=== PATIENT | male | born 1960 | race Caucasian/White ===

== ENCOUNTER 2019-04-10 12:45 | Emergency (ER) | payer OTHER, SELFPAY ==
[2019-04-10] VITALS (42 sets, daily range): BP systolic 107–133; BP diastolic 69–86; PULSE 54–74; RESP 9–31; TEMP 36.6–36.8; O2SAT 92–98
--- NOTE | 2019-04-10 12:47 | W.ED.GENAD ---
Discharge Plan Disposition Patient Disposition: HOME Condition: Improving Discharge Details Chief Complaint: Chest Pain Clinical Impression: Atypical chest pain, Anxiety, Stress at work Primary Care Provider: Stephani,Local ED Provider: Annelise Vizcarra Home Meds and New Rx's Prescriptions: Continued buspirone 5 mg Tablet 5 mg PO BID RF: 0 vitamin B complex Tablet 1 tab PO DAILY RF: 0 cholecalciferol (vitamin D3) [Vitamin D3] 1,000 unit Capsule 1,000 unit PO DAILY RF: 0 bupropion HCl [Wellbutrin XL] 300 mg Tablet Extended Release 24 Hr 300 mg PO DAILY RF: 0 omega 0-[id number]-[id number]-fish oil [Fish Oil] 1,000 mg (120 mg-180 mg) Capsule 1 cap PO DAILY RF: 0 Discharge Instructions Instructions: Chest Pain (ED), Anxiety (ED) Additional Instructions: Take the Ativan as needed and directed for any further episodes of feelings similar to anxiety. Call your primary care doctor tomorrow to schedule follow-up appointment for reevaluation and for referral for an outpatient stress test. Return immediately to the emergency department if you develop any worsening or new concerning symptoms. Discharge Data Discharge Physician: Annelise Vizcarra Medical Decision Making 59-year-old male with a history of anxiety and depression who presents with left-sided chest pain that started at 830 this morning while eating breakfast. Worse with head movement. Pain minimal at present. Admits to recent stress lately with work and also frequent heavy lifting. Pain in left chest worse with movement of head. EKG on arrival notes a rate of 100, sinus, and no acute ST findings. Heart score of 1. Denies any complaint of tearing chest pain does not appear consistent with dissection. Admits to recent travel from [place]. Pain most likely appears consistent with musculoskeletal, also concern for anxiety as patient has a history of anxiety and depression and appears very anxious and admits to stress at work and stress with father who is ill. Will order cardiac work-up and d-dimer, chest x-ray, a dose of Toradol and Ativan. 1330 -- Labs and imaging reviewed and unremarkable. Troponin negative. D-dimer negative. Chest x-ray negative. Patient admits to improvement in pain. He is agreeable to stay for a second troponin. 1710 -- Second troponin negative. Repeat EKG unchanged. Second troponin still within normal range but uptrending. Patient agreeable with plan to check a third troponin and EKG. 2019 -- Third troponin unchanged. Repeat EKG unchanged. Patient feels much better and is requesting to go home. He denies any chest pain. We will send home with 3 tabs of Ativan. Patient is passing through here on vacation for the next 2 weeks. He is instructed to call his primary care doctor tomorrow to schedule follow-up appointment for reevaluation of referral for an outpatient stress test. He is instructed to return here or any emergency department any worsening or concerning symptoms. Medical Records Medical records reviewed: Yes I reviewed the patient's medical records. Imaging Data Radiologic Study: Radiologist's impression: PA AND LATERAL CHEST: The heart is normal in size. The lungs are clear. The mediastinal structures and pleura appear intact. SUMMARY: Normal chest. No evidence of acute cardiopulmonary disease. Lab Data Lab results reviewed: Yes I reviewed the patient's lab results. Laboratory Tests Range/Units 04/10/19 04/10/19 04/10/19 12:55 12:55 12:55 WBC (4.4-10.8) k/cumm 6.97 RBC (4.50-6.00) m/cumm 4.90 Hgb (13.5-17.5) g/dL 16.2 Hct (40.0-50.0) % 46.5 MCV (80-95) fL 94.9 MCH (27.0-33.0) pg 33.1 H MCHC (32.0-36.0) g/dL 34.8 RDW (11.8-14.1) % 12.0 Plt Count (130-400) x1000/uL 213 MPV (8.0-11.0) fL 10.7 Immature Gran % 0.3 Neutrophils % 44.6 Lymphocytes % 39.5 Monocytes % 11.8 Eosinophils % 3.2 Basophils % 0.6 Absolute Neutrophils (1.2-6.7) k/cumm 3.12 Absolute Lymphocytes (1.2-3.4) k/cumm 2.75 Absolute Monocytes (0.11-0.7) k/cumm 0.82 H Absolute Eosinophils (0.0-0.7) k/cumm 0.22 Absolute Basophils (0.0-0.2) k/cumm 0.04 D-Dimer (<500) ng/mlFEU 207 Sodium (136-145) mmol/L 141 Potassium (3.5-5.1) mmol/L 4.1 Chloride (98-107) mmol/L 105 Carbon Dioxide (21.0-32.0) mmol/L 26.9 Anion Gap (3-11) mmol/L 9.1 BUN (7-18) mg/dL 14 Creatinine (0.70-1.30) mg/dL 1.17 Estimated GFR/1.73 m2 (mL/min/1.73m2) >= 60.00 Glucose (70-100) mg/dL 99 Calcium (8.5-10.1) mg/dL 9.2 Magnesium (1.8-2.4) mg/dL 2.1 Total Bilirubin (0.2-1.0) mg/dL 1.1 H AST (15-37) U/L 23 ALT (12-78) U/L 40 Alkaline Phosphatase (46-116) U/L 62 Troponin I (0.00-0.06) ng/mL < 0.02 Total Protein (6.4-8.2) g/dL 7.2 Albumin (3.4-5.0) g/dL 3.9 Range/Units 04/10/19 04/10/19 16:33 19:11 WBC (4.4-10.8) k/cumm RBC (4.50-6.00) m/cumm Hgb (13.5-17.5) g/dL Hct (40.0-50.0) % MCV (80-95) fL MCH (27.0-33.0) pg MCHC (32.0-36.0) g/dL RDW (11.8-14.1) % Plt Count (130-400) x1000/uL MPV (8.0-11.0) fL Immature Gran % Neutrophils % Lymphocytes % Monocytes % Eosinophils % Basophils % Absolute Neutrophils (1.2-6.7) k/cumm Absolute Lymphocytes (1.2-3.4) k/cumm Absolute Monocytes (0.11-0.7) k/cumm Absolute Eosinophils (0.0-0.7) k/cumm Absolute Basophils (0.0-0.2) k/cumm D-Dimer (<500) ng/mlFEU Sodium (136-145) mmol/L Potassium (3.5-5.1) mmol/L Chloride (98-107) mmol/L Carbon Dioxide (21.0-32.0) mmol/L Anion Gap (3-11) mmol/L BUN (7-18) mg/dL Creatinine (0.70-1.30) mg/dL Estimated GFR/1.73 m2 (mL/min/1.73m2) Glucose (70-100) mg/dL Calcium (8.5-10.1) mg/dL Magnesium (1.8-2.4) mg/dL Total Bilirubin (0.2-1.0) mg/dL AST (15-37) U/L ALT (12-78) U/L Alkaline Phosphatase (46-116) U/L Troponin I (0.00-0.06) ng/mL < 0.05 < 0.05 Total Protein (6.4-8.2) g/dL Albumin (3.4-5.0) g/dL ECG Data Attestation: I personally reviewed and interpreted this ECG (s) as follows: Interpretation: #1 --62, sinus, anterior fascicular block, no acute ST-T wave ischemic changes. QTc 431. QRS 102 #2 --59, sinus, no acute ST-T wave ischemic findings, V4 3 0. QRS 102 #3 --61, sinus, anterior fascicular block, no acute ST T wave ischemic changes. QTc 435. QRS 100 HPI General Mode of arrival: ambulatory. Date/Time Provider Initiated Documentation: 04/10/19 12:46. Limitations to Documentation: no limitations. Information obtained by: patient. HPI Narrative: Patient is a 59-year-old male with history of anxiety, depression, hemochromatosis who presents with constant left-sided dull to aching chest pain that started while eating breakfast morning. Describes the pain is constant, at times worse in intensity, 1/10 at its least and 4/10 at its worst. Pain is currently 1-2. States the pain is worse with head movement from side to side. He states the pain became better after resting a while at home today. He states he feels like he is dehydrated and stressed from work. 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 He traveled recently from [place] 3 days ago with the longest car trip approximately 6 hours. He denies any fever, cough, shortness of breath, nausea, vomiting, dizziness, leg pain or swelling, or recent surgery. Related Data Home Medications Medication Instructions Recorded Confirmed bupropion HCl [Wellbutrin XL] 300 mg PO DAILY 04/10/19 04/10/19 buspirone 5 mg PO BID 04/10/19 04/10/19 cholecalciferol (vitamin D3) 1,000 unit PO DAILY 04/10/19 04/10/19 [Vitamin D3] omega [id number]-fish oil [Fish Oil] 1 cap PO DAILY 04/10/19 04/10/19 vitamin B complex 1 tab PO DAILY 04/10/19 04/10/19 Allergies Allergy/AdvReac Type Severity Reaction Status Date / Time No Known Allergies Allergy Unverified 04/10/19 12:52 Review of Systems Review of Systems All systems reviewed & are unremarkable except as noted in HPI and below Constitutional Reports as per HPI, Denies chills and Denies fever(s) Eyes Denies blurry vision ENT Denies dizziness, Denies sore throat and Denies throat swelling Cardiovascular Reports chest pain and Denies dyspnea Respiratory Denies cough and Denies dyspnea Gastrointestinal Denies abdominal pain, Denies diarrhea and Denies vomiting Genitourinary Denies hematuria and Denies dysuria Musculoskeletal Denies back pain and Denies numbness Integumentary/Breasts Denies lesions and Denies rash Neurologic Denies dizziness, Denies focal weakness and Denies numbness Allergic/Immunologic Denies throat swelling [facility] Medical History Hemochromatosis (Acute) Anxiety (Chronic) Depression (Chronic) Gout (Chronic) Surgical History Lipoma (Acute) Social History Smoking/Tobacco Use Status: Never Alcohol Intake: current Alcohol Intake frequency: a few times a week Drug use: Never Substance use type: does not use Do you feel safe at home: Yes Do you feel safe in your relationship?: Yes Exam Const General: cooperative, healthy appearing and anxious [facility] Head: normal to inspection Face and sinus: normal facial exam Eyes General: appearance normal, both eyes and all related structures Pupils: PERRL EOM: EOM intact bilaterally Neck Neck: normal visual inspection and No submandibular swelling Lymphatic: no lymphadenopathy noted Chest Chest: normal inspection of the chest and no tenderness Resp Effort & Inspection: normal respiratory effort and able to speak in complete sentences Auscultation: clear to auscultation bilaterally Cardio Rate: regular rate Rhythm: regular rhythm GI Inspection: normal to inspection Palpation: soft, not firm, not rigid and nontender Auscultation: normal bowel sounds Male General Exam: Yes normal external exam Back/Spine/Pelvis Thoracic/Lumbar Spine: thoracic and lumbar spine normal to inspection Pelvis: no pain with anterior-posterior compression Skin General skin exam: no rashes or lesions noted Neuro General: alert, awake and oriented x3 Cognition: normal cognition Speech: speech normal Motor: muscle tone normal throughout Sensory Exam: no sensory deficits noted Extrem General: normal to inspection, full ROM and no edema Psych Appearance: grossly normal Mental Status: mental status grossly normal Speech and Movement: speech and movement normal Affect: normal affect
[2019-04-10 13:09] LABS: Abs Immature Grans 0.02 k/cumm (0.0-0.09); Absolute Basophil Count 0.04 k/cumm (0.0-0.2); Absolute Eosinophil Count 0.22 k/cumm (0.0-0.7); Absolute Lymphocyte Count 2.75 k/cumm (1.2-3.4); Absolute Monocyte Count 0.82 k/cumm (0.11-0.7); Absolute Neutrophil Count 3.12 k/cumm (1.2-6.7); Basophils % 0.6; Eosinophils % 3.2; HCT 46.5 % (40.0-50.0); HGB 16.2 g/dL (13.5-17.5); Immature Grans % 0.3; Lymphocytes % 39.5; Mean Corp. HGB Concentration 34.8 g/dL (32.0-36.0); Mean Corpuscular Hemoglobin 33.1 pg (27.0-33.0); Mean Corpuscular Volume 94.9 fL (80-95); Mean Platelet Volume 10.7 fL (8.0-11.0); Monocytes % 11.8; Neutrophils % 44.6; Platelet Count 213 x1000/uL (130-400); White Blood Cell Count 6.97 k/cumm (4.4-10.8)
[2019-04-10 13:29] LABS: ALT 40 U/L (12-78); AST 23 U/L (15-37); Albumin 3.9 g/dL (3.4-5.0); Alkaline Phosphatase 62 U/L (46-116); Anion Gap 9.1 mmol/L (3-11); BUN 14 mg/dL (7-18); Bilirubin, Total 1.1 mg/dL (0.2-1.0); CO2 26.9 mmol/L (21.0-32.0); CREATININE 1.17 mg/dL (0.70-1.30); Calcium 9.2 mg/dL (8.5-10.1); Chloride 105 mmol/L (98-107); Glucose 99 mg/dL (70-100); Magnesium 2.1 mg/dL (1.8-2.4); Potassium 4.1 mmol/L (3.5-5.1); Sodium 141 mmol/L (136-145); Total Protein 7.2 g/dL (6.4-8.2)
[2019-04-10 13:36] LABS: Troponin I < 0.02 ng/mL (0.00-0.06)
--- NOTE | 2019-04-10 13:46 | DI.RAD_ITS ---
SYMPTOMS/DIAGNOSIS: CHEST PAIN, ? ACUTE DISEASE PA AND LATERAL CHEST: The heart is normal in size. The lungs are clear. The mediastinal structures and pleura appear intact. SUMMARY: Normal chest. No evidence of acute cardiopulmonary disease.
[2019-04-10 13:52] LABS: D-Dimer 207 ng/mlFEU (<500)
[2019-04-10] MEDS: Ketorolac 30 MG/ML VIAL IVP (13:58)
[2019-04-10] MEDS: LORazepam 2 MG/ML VIAL 0.5 MG IVP (13:59)
[2019-04-10] MEDS: Normal Saline 1,000 ML 1000 ML IV (13:59)
[2019-04-10 16:56] LABS: Troponin I < 0.05 ng/mL (0.00-0.06)
[2019-04-10 19:33] LABS: Troponin I < 0.05 ng/mL (0.00-0.06)
== END 2019-04-10 20:55 | disposition home or self-care (01) ==
PROVIDERS: Emergency Provider Physician Assistant; PCP Family Medicine
DX: R07.89 Other chest pain (principal); F41.9 Anxiety disorder, unspecified; Z56.5 Uncongenial work environment
CPT/HCPCS: 36415; 80053; 93005; 96361; 96374; 99285; 71046; 83735; 84484; 85025; 85379; 93010; J1885; J2060